=== PATIENT | female | born 1965 | race American Indian/Alaskan Native ===

== ENCOUNTER 2020-03-03 21:27 | Emergency (ER) | payer OTHER ==
[2020-03-03 21:39] VITALS: BP 173/102
[2020-03-03 23:56] LABS: Bacteria,Urine 3+ /HPF (Negative); Bilirubin,Urine NEG (Negative); Blood,Urine SM (Negative); Color,Urine Yellow (Yellow); Protein,Urine <15 mg/dL mg/dL (Negative); Urobilinogen,Urine < 2.0 mg/dL (<2.0)
--- NOTE | 2020-03-04 01:46 | Cat Scan Report ---
CT HEAD WITHOUT CONTRAST INDICATION: Patient complains of headache and dizziness TECHNIQUE: Axial slices were obtained through the head. Coronal and sagittal reformatted images were obtained. COMPARISON: None available. FINDINGS: There is no intracranial hemorrhage or extra-axial fluid collection. There is a cisterns are maintain ed. There is no mass lesion or midline shift. No acute territorial infarct is identified. There is de creased attenuation in the white matter characteristic of nonspecific microvascular ischemic change. There is mild atrophy. In addition there is small focal areas of decreased attenuation in the right a nd left parietal lobe white matter which likely represents focal areas of ischemic change. These appe ar to be subacute or chronic. Bone windows demonstrate no acute osseous abnormality. Paranasal sinuses and mastoid air cells appear clear. TECHNIQUE: All CT scans at this facility use dose modulation, iterative reconstruction, automated ex posure control, weight based dosing, when appropriate, to reduce radiation dose to as low as reasonab ly achievable. IMPRESSION: There is no intracranial hemorrhage. There are small focal areas of decreased attenuation in the cere bral white matter bilaterally in the right parietal and left parietal lobes. Suspect that this repres ents focal ischemic change appears to be subacute or chronic. Possibility this represents other white matter disease is considered. Depending on clinical circumstance, MRI may be helpful to further eval uate. There is mild atrophy. Signer Name: Milo Munoz MD Signed: 03/04/2020 1:41 AM Workstation Name: [id number]
--- NOTE | 2020-03-04 03:23 | Emergency Department Report ---
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 She reports no tinnitus. Ports no visual disturbance reports no scotomas reports no fever, chills, sweats no chest pain or palpitations no nausea vomiting. Head Injury Location: occipital, parietal Associated Symptoms: denies: fatigue, facial pain, nausea/vomiting, nasal congestion, nasal drainage, sinus infection, stiff neck, vision changes, weakness Allergies/Adverse Reactions: Allergies ibuprofen [From Advil] Allergy (Verified 03/03/20 21:39) Hives Home Medications: Ambulatory Orders methOCARBAMOL [Robaxin TAB] 750 mg PO Q8H #14 tablet 03/04/20 predniSONE [Deltasone] 20 mg PO BID #10 tablet 03/04/20 ED Review of Systems ROS: Stated complaint: LIMPOMA Other details as noted in HPI Comment: All other systems reviewed and negative ED Past Medical Hx - Past Medical History Previous Medical History?: No - Surgical History Past Surgical History?: Yes Additional Surgical History: C-Sec - Social History Smoking Status: Current Every Day Smoker - Medications Home Medications: Home Medications Medication Instructions Recorded Confirmed Last Taken Type methOCARBAMOL [Robaxin TAB] 750 mg PO Q8H #14 tablet 03/04/20 Unknown Rx predniSONE [Deltasone] 20 mg PO BID #10 tablet 03/04/20 Unknown Rx ED Physical Exam - General Limitations: No Limitations General appearance: alert, in no apparent distress - Head Head exam: Present: atraumatic, normocephalic - Eye Eye exam: Present: normal appearance, PERRL, EOMI, nystagmus Pupils: Present: normal accommodation, other (Negative funduscopic examination. ) - ENT ENT exam: Present: normal exam, mucous membranes moist, TM's normal bilaterally - Neck Neck exam: Present: normal inspection, full ROM - Respiratory Respiratory exam: Present: normal lung sounds bilaterally. Absent: respiratory distress - Cardiovascular Cardiovascular Exam: Present: regular rate, normal rhythm. Absent: systolic murmur, diastolic murmur, rubs, gallop - GI/Abdominal GI/Abdominal exam: Present: soft, normal bowel sounds - Extremities Exam Extremities exam: Present: normal inspection - Back Exam Back exam: Present: normal inspection - Neurological Exam Neurological exam: Present: alert, oriented X3, CN II-XII intact, normal gait, other (Romberg negative) - Psychiatric Psychiatric exam: Present: normal affect, normal mood - Skin Skin exam: Present: warm, dry, intact, normal color. Absent: rash ED Course Vital Signs 03/03/20 03/03/20 21:34 21:39 Temperature 98.7 F Pulse Rate 92 H Respiratory 18 Rate Blood Pressure 173/102 O2 Sat by Pulse 91 Oximetry ED Medical Decision Making - Radiology Data Radiology results: [place] [address] Cat Scan Report Signed Patient: MITCH ARGUETA MR#: [id number] : 1965 Acct:[id number] Age/Sex: 54 / F ADM Date: 03/03/20 Loc: ED Attending Dr: Ordering Physician: KAYDEN AMBRIZ Date of Service: 03/03/20 Procedure(s): CT head/brain wo con Accession Number(s): [id number] cc: KAYDEN AMBRIZ CT HEAD WITHOUT CONTRAST INDICATION: Patient complains of headache and dizziness TECHNIQUE: Axial slices were obtained through the head. Coronal and sagittal reformatted images were obtained. COMPARISON: None available. FINDINGS: There is no intracranial hemorrhage or extra-axial fluid collection. There is a cisterns are maintained. There is no mass lesion or midline shift. No acute territorial infarct is identified. There is decreased attenuation in the white matter characteristic of nonspecific microvascular ischemic change. There is mild atrophy. In addition there is small focal areas of decreased attenuation in the right and left parietal lobe white matter which likely represents focal areas of ischemic change. These appear to be subacute or chronic. Bone windows demonstrate no acute osseous abnormality. Paranasal sinuses and mastoid air cells appear clear. TECHNIQUE: All CT scans at this facility use dose modulation, iterative reconstruction, automated exposure control, weight based dosing, when appropriate, to reduce radiation dose to as low as reasonably achievable. IMPRESSION: There is no intracranial hemorrhage. There are small focal areas of decreased attenuation in the cerebral white matter bilaterally in the right parietal and left parietal lobes. Suspect that this represents focal ischemic change appears to be subacute or chronic. Possibility this represents other white matter disease is considered. Depending on clinical circumstance, MRI may be helpful to further evaluate. There is mild atrophy. Signer Name: Milo Munoz MD Signed: 03/04/2020 1:41 AM Workstation Name: [id number] Transcribed By: Dictated By: Milo Munoz MD Electronically Authenticated By: Milo Munoz MD Signed Date/Time: 03/04/20140 DD/ 6 TD/TT - Medical Decision Making This patient presents with a headache most consistent with migraine. Differential diagnosis includes migraine versus tension type headache. No headache red flags. Neurologic exam without evidence of meningismus, focal neurologic findings.Based on the patient's history and physical there is very low clinical suspicion for significant intracranial pathology. The headache was NOT sudden onset, NOT maximal at onset, there are NO neurologic findings, the patient does NOT have a fever, the patient does NOT have any jaw claudication, the patient does NOT endorse a clotting disorder, patient DENIES any trauma or eye pain and the headache is NOT associated with dizziness or ataxia. Presentation not consistent with acute intracranial bleed to include SAH (lack of risk factors, headache history). Presentation not consistent with acute PLATFORM MAN infection to include meningitis or brain abscess, Temporal arteritis unlikely, as is acute angle closure glaucoma given history and physical findings. Presentation not consistent with other acute, emergent causes of headache at this time. Plan to treat symptomatically with pain medication. No indication for imaging/LP at this time. Plan: pain medication, CT brain no acute processes, serial reassessment Critical care attestation.: If time is entered above; I have spent that time in minutes in the direct care of this critically ill patient, excluding procedure time. ED Disposition Clinical Impression: Cephalgia Disposition: DC-01 TO HOME OR SELFCARE Is pt being admited?: No Does the pt Need Aspirin: No Condition: Stable Instructions: Acute Headache (ED), Cervical Radiculopathy (ED) Prescriptions: predniSONE [Deltasone] 20 mg PO BID #10 tablet methOCARBAMOL [Robaxin TAB] 750 mg PO Q8H #14 tablet Referrals: PRIMARY CARE, [Primary Care Provider] - 3-5 Days Forms: AMA Form
== END 2020-03-04 03:00 | disposition home or self-care (01) ==
LOC: ED 21:27
DX: R51.9 Headache, unspecified (principal); R20.2 Paresthesia of skin; R42 Dizziness and giddiness; F17.200 Nicotine dependence, unspecified, uncomplicated; Z98.890 Other specified postprocedural states; Z79.899 Other long term (current) drug therapy; Z88.8 Allergy status to other drugs, medicaments and biological substances
CPT/HCPCS: 70450; 81001

== ENCOUNTER 2020-03-08 12:49 | Emergency (ER) | payer OTHER ==
--- NOTE | 2020-03-08 13:10 | Emergency Department Report ---
Blank Doc - Documentation Documentation: This is a 54-year-old female that presents with headache, dizziness, n/v and u ncontrolled HTN. This initial assessment/diagnostic orders/clinical plan/treatment(s) is/are subject to change based on patient's health status, clinical progression and re- assessment by fellow clinical providers in the ED. Further treatment and workup at subsequent clinical providers discretion. Patient/guardians urged not to elope from the ED as their condition may be serious if not clinically assessed and managed. Initial orders include: 1- Patient sent to [facility] for further evaluation and treatment 2- cardiac workup r/o HTN emergency 3- CT head
[2020-03-08 13:47] LABS: Basophils # (Auto) 0.1 K/mm3 (0.0-0.1); Basophils % (Auto) 0.9 % (0.0-1.8); Eosinophils # (Auto) 0.1 K/mm3 (0.0-0.4); Lymphocytes # (Auto) 1.2 K/mm3 (1.2-5.4); Lymphocytes % (Auto) 18.8 % (13.4-35.0); Mean Corpuscular HGB Conc 34 % (30-34); Mean Corpuscular Volume 94 fl (79-97); Monocytes # (Auto) 0.4 K/mm3 (0.0-0.8); Monocytes % (Auto) 6.6 % (0.0-7.3); Platelet Count 270 K/mm3 (140-440); Red Blood Count 5.02 M/mm3 (3.65-5.03); Red Cell Distribution Width 13.7 % (13.2-15.2)
[2020-03-08 13:59] LABS: INR 0.94 (0.87-1.13); Partial Thromboplastin Time 25.7 Sec. (24.2-36.6)
[2020-03-08 14:04] LABS: Alanine Aminotransferase 21 units/L (7-56); Albumin 4.4 g/dL (3.9-5); Blood Urea Nitrogen 8 mg/dL (7-17); Hemolysis Index 8
[2020-03-08 14:07] LABS: BUN/Creatinine Ratio 11
--- NOTE | 2020-03-08 14:46 | Cat Scan Report ---
CT head/brain wo con INDICATION / CLINICAL INFORMATION: 54 years Female; headache/dizziness. TECHNIQUE: Routine CT head without contrast. All CT scans at this location are performed using CT dos e reduction for ALARA by means of automated exposure control. COMPARISON: The study is compared to the previous CT of 03/04/2020. FINDINGS: BRAIN / INTRACRANIAL CONTENTS: There is continued cerebral white matter disease with scattered areas of decreased attenuation involving subcortical and periventricular regions. The findings a correlate with the previous CT and remains most consistent with microvascular angiopathy. The ventricular system remains unchanged in size and configuration. There is no clear CT evidence of acute intracranial hemorrhage or significant mass effect. ORBITS: No significant abnormality of visualized orbits. SINUSES / MASTOIDS: No significant abnormality in the visualized paranasal sinuses or mastoid air samir ls. CRANIOCERVICAL JUNCTION: No significant abnormality. ADDITIONAL FINDINGS: None. IMPRESSION: 1. This continued microvascular angiopathy as described without CT evidence of acute intracranial hem orrhage or significant interval change from 03/04/2020. Signer Name: Marcel Domingo MD Signed: 03/08/2020 2:41 PM Workstation Name: [id number]
[2020-03-08] MEDS ORDERED: MECLIZINE 25 MG TAB PO ONE (15:28)
[2020-03-08] MEDS ORDERED: ONDANSETRON 4 MG ODT TAB ONE (15:30)
--- NOTE | 2020-03-08 15:31 | Emergency Department Report ---
HPI - General Chief Complaint: Dizziness Time Seen by Provider: 03/08/20 13:09 - HPI HPI: This is a 54-year-old female presents to the emergency department with a complaint of some lightheadedness that has been going on for the past week. She was seen here on 03/03/2020 for similar symptoms and had a negative work-up at that time including a negative CT of the head without contrast. The patient has a history of migraine headaches and has a occipital lipoma that was evaluated at that time as well. Currently the patient denies any headache. She describes her lightheadedness/dizziness as "if you were to take a handful of pain medication." She denies feeling sedated. She denies any fever, vision change, slurred speech, weakness. Patient does say that sometimes she feels like she is slightly numb around her mouth. She has not taken anything for symptoms prior to presentation. No recent travel or sick contacts at home. She does not have a primary care physician. She denies any tobacco or illicit drug use. ED Past Medical Hx - Past Medical History Previous Medical History?: No - Surgical History Past Surgical History?: No Additional Surgical History: C-Sec - Social History Smoking Status: Current Every Day Smoker - Medications Home Medications: Home Medications Medication Instructions Recorded Confirmed Last Taken Type methOCARBAMOL [Robaxin TAB] 750 mg PO Q8H #14 tablet 03/04/20 Unknown Rx predniSONE [Deltasone] 20 mg PO BID #10 tablet 03/04/20 Unknown Rx amLODIPine 5 mg PO DAILY #30 tab 03/08/20 Unknown Rx ED Review of Systems ROS: Stated complaint: DIZZINESS Other details as noted in HPI Comment: All other systems reviewed and negative Constitutional: denies: chills, fever Eyes: denies: eye pain, vision change ENT: denies: ear pain, throat pain Respiratory: denies: cough, shortness of breath Cardiovascular: denies: chest pain, palpitations Gastrointestinal: nausea. denies: abdominal pain, vomiting Genitourinary: denies: dysuria, discharge Musculoskeletal: denies: back pain, arthralgia Skin: denies: rash, lesions Neurological: numbness (Perioral), other (Dizziness/lightheadedness). denies: headache, weakness, confusion Physical Exam - Physical Exam Vital Signs: Vital Signs 03/08/20 03/08/20 13:10 13:11 Temperature 98.6 F Pulse Rate 79 Respiratory 18 Rate Blood Pressure 179/103 [Right] O2 Sat by Pulse 97 Oximetry Physical Exam: GENERAL: The patient is well-developed well-nourished. HENT: Normocephalic. Atraumatic. Patient has moist mucous membranes. EYES: Extraocular motions are intact. No nystagmus. NECK: Supple. Trachea is midline. CHEST/LUNGS: Clear to auscultation. There is no respiratory distress noted. HEART/CARDIOVASCULAR: Regular. There is no tachycardia. There is no murmur. ABDOMEN: Abdomen is soft, nontender. Patient has normal bowel sounds. SKIN: Skin is warm and dry. NEURO: The patient is awake, alert, and oriented. The patient is cooperative. The patient has no focal neurologic deficits. Normal speech. Cranial nerves II through XII grossly intact. No facial asymmetry. No dysmetria. MUSCULOSKELETAL: There is no tenderness or deformity. There is no limitation range of motion. ED Course Vital Signs 03/08/20 03/08/20 13:10 13:11 Temperature 98.6 F Pulse Rate 79 Respiratory 18 Rate Blood Pressure 179/103 [Right] O2 Sat by Pulse 97 Oximetry - Reevaluation(s) Reevaluation #1: 03/08/20 20:29 Lab Results 03/08/20 03/08/20 03/08/20 Range/Units 13:24 13:25 13:25 WBC 6.4 (4.5-11.0) K/mm3 RBC 5.02 (3.65-5.03) M/mm3 Hgb 16.0 H (10.1-14.3) gm/dl Hct 47.0 H (30.3-42.9) % MCV 94 (79-97) fl MCH 32 (28-32) pg MCHC 34 (30-34) % RDW 13.7 (13.2-15.2) % Plt Count 270 (140-440) K/mm3 Lymph % (Auto) 18.8 (13.4-35.0) % [place] % (Auto) 6.6 (0.0-7.3) % Eos % (Auto) 1.0 (0.0-4.3) % Baso % (Auto) 0.9 (0.0-1.8) % Lymph # (Auto) 1.2 (1.2-5.4) K/mm3 [place] # (Auto) 0.4 (0.0-0.8) K/mm3 Eos # (Auto) 0.1 (0.0-0.4) K/mm3 Baso # (Auto) 0.1 (0.0-0.1) K/mm3 Seg Neutrophils % 72.7 H (40.0-70.0) % Seg Neutrophils # 4.7 (1.8-7.7) K/mm3 PT 12.7 (12.2-14.9) Sec. INR 0.94 (0.87-1.13) APTT 25.7 (24.2-36.6) Sec. Sodium 139 (137-145) mmol/L Potassium 3.7 (3.6-5.0) mmol/L Chloride 101.9 (98-107) mmol/L Carbon Dioxide 22 (22-30) mmol/L Anion Gap 19 mmol/L BUN 8 (7-17) mg/dL Creatinine 0.7 (0.6-1.2) mg/dL Estimated GFR > 60 ml/min BUN/Creatinine Ratio 11 % Glucose 103 H (65-100) mg/dL Calcium 10.0 (8.4-10.2) mg/dL Total Bilirubin 0.90 (0.1-1.2) mg/dL AST 21 (5-40) units/L ALT 21 (7-56) units/L Alkaline Phosphatase 83 (35-129) units/L Troponin T < 0.010 (0.00-0.029) ng/mL Total Protein 7.6 (6.3-8.2) g/dL Albumin 4.4 (3.9-5) g/dL Albumin/Globulin Ratio 1.4 % TSH (0.270-4.200) mlU/mL Free T4 (0.76-1.46) ng/dL Urine Color (Yellow) Urine Turbidity (Clear) Urine pH (5.0-7.0) Ur Specific [place] (1.003-1.030) Urine Protein (Negative) mg/dL Urine Glucose (UA) (Negative) mg/dL Urine Ketones (Negative) mg/dL Urine Blood (Negative) Urine Nitrite (Negative) Urine Bilirubin (Negative) Urine Urobilinogen (<2.0) mg/dL Ur Leukocyte Esterase (Negative) Urine WBC (Auto) (0.0-6.0) /HPF Urine RBC (Auto) (0.0-6.0) /HPF U Epithel Cells (Auto) (0-13.0) /HPF Urine Bacteria (Auto) (Negative) /HPF Hyaline Casts /LPF Urine Mucus /HPF 03/08/20 03/08/20 03/08/20 Range/Units 15:41 16:41 Unknown WBC (4.5-11.0) K/mm3 RBC (3.65-5.03) M/mm3 Hgb (10.1-14.3) gm/dl Hct (30.3-42.9) % MCV (79-97) fl MCH (28-32) pg MCHC (30-34) % RDW (13.2-15.2) % Plt Count (140-440) K/mm3 Lymph % (Auto) (13.4-35.0) % [place] % (Auto) (0.0-7.3) % Eos % (Auto) (0.0-4.3) % Baso % (Auto) (0.0-1.8) % Lymph # (Auto) (1.2-5.4) K/mm3 [place] # (Auto) (0.0-0.8) K/mm3 Eos # (Auto) (0.0-0.4) K/mm3 Baso # (Auto) (0.0-0.1) K/mm3 Seg Neutrophils % (40.0-70.0) % Seg Neutrophils # (1.8-7.7) K/mm3 PT (12.2-14.9) Sec. INR (0.87-1.13) APTT (24.2-36.6) Sec. Sodium (137-145) mmol/L Potassium (3.6-5.0) mmol/L Chloride (98-107) mmol/L Carbon Dioxide (22-30) mmol/L Anion Gap mmol/L BUN (7-17) mg/dL Creatinine (0.6-1.2) mg/dL Estimated GFR ml/min BUN/Creatinine Ratio % Glucose (65-100) mg/dL Calcium (8.4-10.2) mg/dL Total Bilirubin (0.1-1.2) mg/dL AST (5-40) units/L ALT (7-56) units/L Alkaline Phosphatase (35-129) units/L Troponin T (0.00-0.029) ng/mL Total Protein (6.3-8.2) g/dL Albumin (3.9-5) g/dL Albumin/Globulin Ratio % TSH 0.211 L (0.270-4.200) mlU/mL Free T4 1.16 (0.76-1.46) ng/dL Urine Color Red (Yellow) Urine Turbidity Slightly-cloudy (Clear) Urine pH 6.0 (5.0-7.0) Ur Specific [place] 1.015 (1.003-1.030) Urine Protein <15 mg/dl (Negative) mg/dL Urine Glucose (UA) Neg (Negative) mg/dL Urine Ketones Neg (Negative) mg/dL Urine Blood Mod (Negative) Urine Nitrite Pos (Negative) Urine Bilirubin Neg (Negative) Urine Urobilinogen < 2.0 (<2.0) mg/dL Ur Leukocyte Esterase Tr (Negative) Urine WBC (Auto) 13.0 H (0.0-6.0) /HPF Urine RBC (Auto) 3.0 (0.0-6.0) /HPF U Epithel Cells (Auto) 10.0 (0-13.0) /HPF Urine Bacteria (Auto) 1+ (Negative) /HPF Hyaline Casts 1 /LPF Urine Mucus 3+ /HPF ED Medical Decision Making - Lab Data Result diagrams: 03/08/20 13:25 03/08/20 13:25 - EKG Data -: EKG Interpreted by Or EKG shows normal: sinus rhythm, axis, intervals, QRS complexes (Q waves to the septal leads), ST-T waves Rate: normal - EKG Data When compared to previous EKG there are: previous EKG unavailable Interpretation: other (Sinus rhythm, normal interval, normal axis, Q waves to the septal leads. No ST elevation TN) - Radiology Data Radiology results: report reviewed CT head/brain wo con INDICATION / CLINICAL INFORMATION: 54 years Female; he adache/dizziness. TECHNIQUE: Routine CT head without contrast. All CT scans at this location are performed using CT dose reduction for ALARA by means of automated exposure control. COMPARISON: The study is compared to the previous CT of 03/04/2020. FINDINGS: BRAIN / INTRACRANIAL CONTENTS: There is continued cerebral white matter disease with scattered areas of decreased attenuation involving subcortical and periventricular regions. The findings a correlate with the previous CT and remains most consistent with microvascular angiopathy. The ventricular system remains unchanged in size and configuration. There is no clear CT evidence of acute intracranial hemorrhage or significant mass effect. ORBITS: No significant abnormality of visualized orbits. SINUSES / MASTOIDS: No significant abnormality in the visualized paranasal sinuses or mastoid air cells. CRANIOCERVICAL JUNCTION: No significant abnormality. ADDITIONAL FINDINGS: None. IMPRESSION: 1. This continued microvascular angiopathy as described without CT evidence of acute intracranial hemorrhage or significant interval change from 03/04/2020. - Medical Decision Making This patient presents to the emergency department with some continued plaint of nonspecific dizziness/lightheadedness. She had a CT scan of the head without contrast, ordered through triage, that resulted as showing no acute process including any acute bleed, shift, mass, ischemia. On examination she does not have any focal, motor or sensory deficits and her cranial nerves are intact. EKG does not have any morphology consistent with ST elevation myocardial infarction or any dysrhythmia. Labs have been unremarkable including CBC, metabolic panel, troponin. She did have a slightly low TSH level but a normal free T4. Patient was reevaluated multiple times over multiple hours and has remained stable throughout her ED course. She was seen ambulatory in the emergency department and both appears and feels stable. Patient be discharged home to follow-up with a primary care physician. She has been started on medium dose amlodipine for her elevated blood pressure. We discussed staying away from foods that are high in salt and caffeinated products and keeping a blood pressure log. The patient will return to the emergency department with any worsening of her symptoms or with any acute distress. Critical Care Time: No Critical care attestation.: If time is entered above; I have spent that time in minutes in the direct care of this critically ill patient, excluding procedure time. ED Disposition Clinical Impression: Dizziness, Lightheaded Hypertension Qualifiers: Hypertension type: essential hypertension Qualified Code(s): I10 - Essential (primary) hypertension Disposition: - TO HOME OR SELFCARE Is pt being admited?: No Condition: Stable Instructions: Hypertension (ED), Lightheadedness (ED), Dizziness (ED) Additional Instructions: Please follow-up with a primary care physician in the next few days. Return to the emergency department with any worsening of your symptoms, new or concerning symptoms not addressed during this current emergency department visit, or with any acute distress. Prescriptions: amLODIPine 5 mg PO DAILY #30 tab Referrals: PCP, Your [Other] - 2-3 Days Forms: Work/School Release Form(ED) Time of Disposition: 18:21
[2020-03-08 15:40] VITALS: BP 164/95
[2020-03-08] MEDS ORDERED: ASPIRIN 325 MG TAB ONE (16:38)
[2020-03-08 18:11] LABS: Bacteria,Urine 1+ /HPF (Negative); Bilirubin,Urine NEG (Negative); Blood,Urine MOD (Negative); Color,Urine Red (Yellow); Hyaline Casts,Urine 1 /LPF; Mucus,Urine 3+ /HPF; Protein,Urine <15 mg/dL mg/dL (Negative); Urobilinogen,Urine < 2.0 mg/dL (<2.0)
== END 2020-03-08 18:35 | disposition home or self-care (01) ==
LOC: ED 12:49
DX: I10 Essential (primary) hypertension (principal); R42 Dizziness and giddiness; F17.200 Nicotine dependence, unspecified, uncomplicated; Z98.890 Other specified postprocedural states; Z88.6 Allergy status to analgesic agent; Z79.899 Other long term (current) drug therapy
CPT/HCPCS: 36415; 70450; 80053; 81001; 84439; 84443; 84484; 85025; 85610; 85730; 87086; 93005; Q0162